=== PATIENT | female | born 1950 | race American Indian/Alaskan Native ===

== ENCOUNTER 2021-04-26 14:18 | Emergency (ER) | payer SELFPAY ==
--- NOTE | 2021-04-26 14:25 | Emergency Department Report ---
ED CPR HPI - General Chief Complaint: Cardiac Arrest/CPR Stated Complaint: Cardiac Arrest Time Seen by Provider: 04/26/21 14:24 Source: EMS (Verbal report received from emergency medical services. EMS documentation not available at time of chart dictation ), old records reviewed Mode of arrival: Carried (Peds) Limitations: Altered Mental Status, Physical Limitation - History of Present Illness Initial Comments: The patient is a 70-year-old female. She is not known to myself previously. She is brought to the hospital by emergency medical services as an [id number] nontraumatic cardiac arrest. Patient arrives intubated, receiving CPR, with a right lower extremity IO line, with a GCS of 3. History obtained entirely from EMS. EMS reports that they responded to a call for a patient who is unresponsive and not breathing. It is not known if bystander started CPR. EMS reports that when they arrived and evaluated the patient, she was in p ulseless V. tach, and she was shocked x2. The patient was intubated with a 6oh endotracheal tube. After second shock, patient converted to asystole. Patient received CPR, standard ACLS medications. EMS reports that patient is pulseless and asystolic for at least 15 minutes prior to ER arrival. Upon ER arrival, patient has a GCS of 3, and is pulseless, found to be in asystole on the monitor. Bedside cardiac ultrasound shows no dopplerable pulses, and cardiac standstill. Standard ACLS interventions are continued. Standard medications are administered. Unfortunately, pulses are not able to be obtained. Resuscitation efforts were subsequently terminated secondary to medical futility, and obvious signs of . The patient's brother was subsequently informed. MD Complaint: stopped breathing -: minute(s) Place: home Initial Findings in the Field: no pulse, VTACH/VFIB Treatments Prior to Arrival: intubation, chest compressions, defribrillated shocks #, epinephrine mgs # ED Review of Systems ROS: Stated complaint: Cardiac Arrest Other details as noted in HPI Comment: Unobtainable due to pts medical conditions ED Physical Exam - General Limitations: Altered Mental Status, Physical Limitation General appearance: obtunded - Head Head exam: Present: atraumatic, normocephalic - Eye Eye exam: Present: scleral icterus. Absent: normal appearance (Pupils are dilated, and do not react to light) - ENT ENT exam: Present: normal exam (Endotracheal tube noted in the oropharynx), mucous membranes moist - Neck Neck exam: Present: normal inspection - Respiratory Respiratory exam: Absent: normal lung sounds bilaterally (No breath sounds unless [id number] ventilation is applied.), respiratory distress - Cardiovascular Cardiovascular Exam: Present: other (The patient is pulseless) - GI/Abdominal GI/Abdominal exam: Present: other (There is a drainage catheter noted in the right upper quadrant.) - Extremities Exam Extremities exam: Present: normal inspection (Right lower extremity IO line noted.) - Back Exam Back exam: Present: normal inspection - Neurological Exam Neurological exam: Present: altered (Nonverbal, GCS of 3) - Skin Skin exam: Present: other (Jaundiced) ED Medical Decision Making - Medical Decision Making Differential diagnosis, including but not limited to: Acute coronary syndrome, pulmonary embolism, pneumonia, sepsis, hemorrhage pancreatic cancer, liver cancer, cardiac arrest Critical care attestation.: If time is entered above; I have spent that time in minutes in the direct care of this critically ill patient, excluding procedure time. ED Disposition Clinical Impression: Cardiac arrest Disposition: 20 Is pt being admited?: No Does the pt Need Aspirin: No Condition: Undetermined
== END 2021-04-26 15:00 ==
LOC: ED 14:18
DX: I46.9 Cardiac arrest, cause unspecified (principal)
CPT/HCPCS: 92950; 99285